=== PATIENT | male | born 1985 | race Caucasian/White ===

== ENCOUNTER 2022-02-13 09:05 | Outpatient (CLI) | payer OTHER ==
--- NOTE | 2022-02-13 17:01 | MRI Report ---
PROCEDURE: Ankle RT W/O INDICATIONS: RIGHT ANKLE PAIN TECHNIQUE: Noncontrast Magnetic Resonance Imaging (MRI) of the ankle/hindfoot was performed utilizing the follow ing sequences on a 3.0 [employer] Siemens MRI: sagittal T1 spin echo, sagittal STIR, axial PD fast spin ec ho, axial T2 fast spin echo with fat saturation, coronal T2 spin echo with fat saturation, and PD fas t spin echo with fat saturation. COMPARISON: None. Findings: Bones: No evidence of fracture, infiltration, ischemia or contusion. Os trigonum is seen. Muscles: No evidence of muscular atrophy or edema. Anterior tibiofibular ligament: Intact. Posterior tibiofibular ligament: Intact. Calcaneofibular ligament: Intact. Talar dome: No significant abnormality. Anterior talofibular ligament: Intact. Posterior talofibular ligament: Intact. Deltoid ligament: Intact. Peroneal tendons: No evidence of tear or tenosynovitis. Tibialis posterior: No evidence of tear or tenosynovitis. Flexor digitorum: No evidence of tear or tenosynovitis. Flexor hallucis longus: Intact. Circumferential T2 hyperintense signal, compatible tenosynovitis. Sinus Tarsi: T2 hyperintense signal in the inferior aspect with preservation of the fat signal. Achilles tendon: Intact. Joint effusion: Posterior tibiotalar joint effusion. Plantar fascia: No evidence of tear or inflammation. IMPRESSION: 1. Tenosynovitis of the flexor hallucis longus. 2. Edema within the inferior aspect of the sinus Tarsi. Reviewed by: Fernando Ribeiro MD on 02/13/2022 5:00 PM PDT Approved by: Fernando Ribeiro MD on 02/13/2022 5:00 PM PDT Station ID: [id number]
== END 2022-02-13 09:06 | disposition home or self-care (01) ==
LOC: DI 09:05
PROVIDERS: ATTEND Podiatrist
DX: M65.9 Synovitis and tenosynovitis, unspecified (principal); R93.6 Abnormal findings on diagnostic imaging of limbs; R93.89 Abnormal findings on diagnostic imaging of other specified body structures